=== PATIENT | female | born 1960 | race Caucasian/White ===

== ENCOUNTER 2018-07-12 08:33 | Emergency (ER) | payer SELFPAY ==
[2018-07-12] MEDS ORDERED: Ondansetron PF 4 MG/2 ML Vial ONE (09:12)
[2018-07-12] MEDS ORDERED: Sodium Chloride 0.9% 1,000 ML ONE (09:13)
[2018-07-12 09:38] LABS: ALT (SGPT) 16 U/L (8-55); AST (SGOT) 11 U/L (5-34); Albumin 4.5 g/dL (3.5-5.0); Alkaline Phosphatase 90 U/L (40-150); Anion Gap 16 mmol/L (10-20); BUN (Urea Nitrogen) 9 mg/dL (9.8-20.1); Bilirubin, Total 0.4 mg/dL (0.2-1.2); Calc. Creatinine Clearance 0 mL/min (70-130); Calcium 10.3 mg/dL (7.8-10.44); Carbon Dioxide 21 mmol/L (22-29); Chloride 104 mmol/L (98-107); Estimated GFR-MDRD 77; Globulin 3.1 g/dL (2.4-3.5); Glucose 99 mg/dL (70-105); Potassium 4.2 mmol/L (3.5-5.1); Protein, Total 7.6 g/dL (6.0-8.3); Sodium 137 mmol/L (136-145)
[2018-07-12 09:40] LABS: Band 33 % (5-11); Lymphocytes 26 % (21-51); MDiff Complete? YES; Mean Corpuscular HGB CONC 32.6 g/dL (32.0-36.0); Mean Corpuscular Hemoglobin 30.4 pg (27.0-31.0); Mean Corpuscular Volume 93.2 fL (78.0-98.0); Mean Platelet Volume 8.7 fL (7.4-10.4); Monocytes 6 % (0-10); Neutrophil 31 % (42-75); PLT Morphology Comment Appears Adequate; Platelet Count 350 thou/uL (130-400); RBC Morphology Normal; Reactive Lymphocytes 4 % (0-10); Red Blood Cell (RBC) Count 4.95 mill/uL (4.20-5.40); White Blood Cell (WBC) Count 11.6 thou/uL (4.8-10.8)
--- NOTE | 2018-07-12 09:53 | RAD ---
TWO VIEW CHEST: Comparison: None. History: Intermittent chest pain. FINDINGS: Lungs are clear. No effusion or pneumothorax. Cardiac silhouette is normal in size. Osseous structure s are intact. IMPRESSION: No focal abnormality. POS: [facility]
[2018-07-12 09:59] LABS: Bilirubin Negative (Negative); Blood, Urine Negative (Negative); Clarity Clear (Clear); Glucose, Urine (Dipstick) Negative (Negative); Leukocyte Negative (Negative); Nitrite Negative (Negative); Protein, Urine (Dipstick) Negative (Neg-Trace); Urobilinogen 0.2 mg/dL (0.2-1.0)
[2018-07-12 10:09] LABS: Amphetamine Not Detected (NotDetected); Barbiturates Screen Not Detected (NotDetected); Benzodiazepine Screen Detected (NotDetected); Cocaine Metabolite Screen Not Detected (NotDetected); Medtox Control Line Valid? VALID (VALID); Methadone Not Detected (NotDetected); Methamphetamine Not Detected (NotDetected); Opiate Screen Not Detected (NotDetected); Oxycodone Screen Not Detected (NotDetected); Phencyclidine (PCP) Not Detected (NotDetected); THC/Cannabinoid Screen Not Detected (NotDetected); Tricyclic Screen Not Detected (NotDetected)
== END 2018-07-12 10:36 | disposition left against medical advice (07) ==
LOC: NAV ERS 08:33
DX: R07.89 Other chest pain (principal); R42 Dizziness and giddiness; R11.0 Nausea; F41.9 Anxiety disorder, unspecified; F43.10 Post-traumatic stress disorder, unspecified; F17.210 Nicotine dependence, cigarettes, uncomplicated; Z79.899 Other long term (current) drug therapy
CPT/HCPCS: 36415; 71046; 80053; 80306; 81003; 84484; 85025; 85379; 93005; 94760; 96361; 96374; J2405; J7050